=== PATIENT | female | born 1935 | race Caucasian/White ===

== ENCOUNTER 2016-09-04 08:14 | Outpatient (CLI) ==
[2012-12-11 01:52] VITALS: BMI 21.6
[2016-09-04 08:49] LABS: BASOPHILS # (AUTO) 0.1 K/uL (0-0.2); BASOPHILS % (AUTO) 0.9 % (0.0-3.0); EOSINOPHILS # (AUTO) 0.2 K/ul (0.0-0.7); EOSINOPHILS % (AUTO) 2.3 % (0.0-7.0); HEMOGLOBIN 14.1 g/dl (12.0-16.0); IMMATURE GRANULOCYTE % (AUTO) 0.4 % (0.0-5.0); LYMPHOCYTES # (AUTO) 1.7 K/uL (0.60-3.4); LYMPHOCYTES % (AUTO) 24.5 (10.0-50.0); MEAN CORPUSCULAR HEMOGLOBIN 29.1 pg (27.0-31.0); MEAN CORPUSCULAR HGB CONC 32.8 (31.8-35.4); MEAN CORPUSCULAR VOLUME 88.7 fl (81.0-99.0); MONOCYTES # (AUTO) 0.6 K/uL (0.4-2.0); MONOCYTES % (AUTO) 8.9 (0-10); NEUTROPHILS # (AUTO) 4.4 K/ul (2.0-6.9); PLATELET COUNT 192 10^3/uL (140-440); RED BLOOD COUNT 4.85 10^6/ul (4.20-5.40); WHITE BLOOD COUNT 6.95 K/ul (4.6-10.2)
[2016-09-04 08:52] LABS: ADD URINE MICROSCOPIC NO; BILIRUBIN,URINE Negative (NEGATIVE); KETONES,URINE Negative (NEGATIVE); LEUKOCYTE ESTERASE ,URINE Negative (NEGATIVE); NITRITE,URINE Negative (NEGATIVE); PROTEIN,URINE Negative (NEGATIVE); URINE, BLOOD Negative (NEGATIVE)
[2016-09-04 09:11] LABS: ALBUMIN 3.9 g/dL (3.4-5.0); ALBUMIN/GLOBULIN RATIO 1.22; ANION GAP 12.1; BILIRUBIN,TOTAL 0.72 mg/dL (0.00-1.20); BUN/CREATININE RATIO 20.89; CALCIUM 9.5 mg/dL (8.2-10.2); CHOL/HDL RATIO 2.8 (4.5-5.5); CREATININE 0.67 mg/dL (0.60-1.30); POTASSIUM 4.1 mmol/L (3.5-5.10); TOTAL PROTEIN 7.1 g/dL (5.8-8.1)
== END 2016-09-04 08:15 | disposition home or self-care (01) ==
LOC: LAB 08:14
PROVIDERS: ATTEND General Practice
DX: E78.5 Hyperlipidemia, unspecified (principal); I25.10 Atherosclerotic heart disease of native coronary artery without angina pectoris; I83.90 Asymptomatic varicose veins of unspecified lower extremity; R20.0 Anesthesia of skin; R31.29 Other microscopic hematuria; Z79.899 Other long term (current) drug therapy
CPT/HCPCS: 36415; 80053; 80061; 81001; 85025

== ENCOUNTER 2017-06-06 13:22 | Outpatient (CLI) ==
[2012-12-11 01:52] VITALS: BMI 21.6
== END 2017-06-06 13:23 | disposition home or self-care (01) ==
LOC: LAB 13:22
PROVIDERS: ATTEND General Practice
DX: E78.5 Hyperlipidemia, unspecified (principal); Z79.899 Other long term (current) drug therapy
CPT/HCPCS: 36415; 80053; 80061; 81001; 85025

== ENCOUNTER 2017-06-14 08:15 | Outpatient (CLI) ==
[2012-12-11 01:52] VITALS: BMI 21.6
--- NOTE | 2017-06-14 09:11 | CT ---
EXAM: CT chest with contrast HISTORY: Pain in the thoracic spine with shortness of breath COMPARISON: Chest x-ray 12/11/2012 and 08/03/2011 TECHNIQUE: Serial axial images of the chest were obtained after 75 ml of Omnipaque IV contrast was a dministered. These were obtained from the lung apices to the upper abdomen. FINDINGS: The thyroid demonstrates a 0.5 cm low attenuation lesion in the posterior left thyroid l. Visualized vessels demonstrate moderate atherosclerotic disease of the aorta. There is no dissectio n, aneurysm or stenosis. The heart is normal in size without pericardial effusion. There is no medi astinal, hilar or axillary pathologically enlarged lymph nodes. There is no pneumothorax or pleural effusion. There is minimal biapical pleural thickening. There i s mild bibasilar atelectasis. There is a calcified granuloma in the left lower lobe. There is no con solidation, nodule or mass. The airways are patent. There is no abnormal ground-glass or consolidat ion. The osseous structures demonstrate no acute compression fracture with mild degenerative disease. Th e osseous structures are unremarkable. Limited views of the soft tissues in the upper abdomen are un remarkable. There is minimal thickening of the distal esophagus at the GE junction which is decompre ssed. IMPRESSION: 1. No acute cardiopulmonary process with minimal apical pleural thickening which is likely chronic. Minimal bibasilar atelectasis is present. 2. No acute osseous abnormality or compression fracture. 3. Minimal thickening of the distal esophagus at the GE junction may represent artifact due to nondi stension versus mild thickening that may represent an area of inflammation.
== END 2017-06-14 08:16 | disposition home or self-care (01) ==
LOC: RAD 08:15
PROVIDERS: ATTEND General Practice
DX: M54.6 Pain in thoracic spine (principal); R06.02 Shortness of breath

== ENCOUNTER 2017-06-19 08:49 | Outpatient (CLI) | payer OTHER ==
[2012-12-11 01:52] VITALS: BMI 21.6
--- NOTE | 2017-06-19 10:12 | MAMMO ---
EXAM: Bilateral digital screening mammogram (2-D and 3-D) History: Screening Comparison: Bilateral mammogram 10/03/2010 Findings: MLO and CC views of bilateral breasts demonstrate scattered fibroglandular breast parenchy ma. CAD was reviewed by the radiologist. Tomosynthesis was performed. Stable benign bilateral scat tered and vascular calcifications. There are no dominant masses, no suspicious microcalcifications a nd no architectural distortions Impression: Benign stable mammogram. Recommend followup routine screening mammography in 1 year. BIRADS 2
== END 2017-06-19 08:50 | disposition home or self-care (01) ==
LOC: RAD 08:49
PROVIDERS: ATTEND General Practice
DX: Z12.31 Encounter for screening mammogram for malignant neoplasm of breast (principal)
CPT/HCPCS: 77067

== ENCOUNTER 2017-10-11 15:12 | Outpatient (CLI) | payer OTHER ==
[2012-12-11 01:52] VITALS: BMI 21.6
== END 2017-10-11 15:13 | disposition home or self-care (01) ==
LOC: FCC-LAB 15:12
PROVIDERS: ATTEND General Practice
DX: R82.90 Unspecified abnormal findings in urine (principal)
CPT/HCPCS: 81001

== ENCOUNTER 2018-02-13 12:19 | Outpatient (CLI) | payer OTHER ==
[2012-12-11 01:52] VITALS: BMI 21.6
== END 2018-02-13 12:20 | disposition home or self-care (01) ==
LOC: FCC-LAB 12:19
PROVIDERS: ATTEND Family Medicine
DX: R06.09 Other forms of dyspnea (principal)
CPT/HCPCS: 36415; 84443; 85025; 85379

== ENCOUNTER 2018-07-28 08:15 | Outpatient (CLI) | payer OTHER ==
[2012-12-11 01:52] VITALS: BMI 21.6
== END 2018-07-28 08:16 | disposition home or self-care (01) ==
LOC: RHC-LAB 08:15 → FCC-LAB 08:16
PROVIDERS: ATTEND General Practice
DX: E78.5 Hyperlipidemia, unspecified (principal); I25.10 Atherosclerotic heart disease of native coronary artery without angina pectoris; Z79.899 Other long term (current) drug therapy
CPT/HCPCS: 36415; 80053; 80061; 81001; 85025; 87086

== ENCOUNTER 2018-10-29 11:56 | Outpatient (CLI) ==
[2012-12-11 01:52] VITALS: BMI 21.6
== END 2018-10-29 11:57 | disposition home or self-care (01) ==
LOC: RHC-LAB 11:56
PROVIDERS: ATTEND General Practice
DX: N81.4 Uterovaginal prolapse, unspecified (principal); N39.3 Stress incontinence (female) (male)
CPT/HCPCS: 81001; 87086

== ENCOUNTER 2018-11-06 07:55 | Outpatient (CLI) ==
[2012-12-11 01:52] VITALS: BMI 21.6
--- NOTE | 2018-11-06 14:38 | MRI ---
MRI the brain without contrast . HISTORY: Forgetfulness. Dementia. COMPARISON: None PROCEDURE: Multiplanar, multisequence imaging the brain performed without contrast. FINDINGS: The CSF spaces, including the ventricles, sulci and cisterns and surrounding meninges demo nstrate no evidence of abnormal extra-axial fluid collections or hematomas or meningeal based lesions . There are findings compatible with age related involution. The cerebral hemispheres demonstrate no mass or mass effect or acute hemorrhage or infarct. The periventricular and Centrum semiovale whit e matter demonstrate confluent bands of increased T2W / FLAIR signal around the margins of the latera l ventricles with additional scattered patchy and focal white matter lesions distributed within the c entrum. The findings are nonspecific but and an older population often associated with chronic small vessel ischemic disease. The major vascular structures at the level of the [place], inclu ding the internal carotid and basilar arteries and their major branches demonstrate detectable flow v oids and grossly normal anatomy at the present level of resolution. The major posterior fossa struct ures including the cerebellar hemispheres and vermis appear normal for age. The brainstem demonstra jesús patchy regions of increased T2W / FLAIR signal in the mid geovany which may be associated with chron ic small vessel ischemic disease. The petrous pyramids and mastoid air cells appear normal. The s eventh and eighth nerve complexes, IACs and visualized inner ear structures are symmetric and normal in appearance at standard resolution ( no high resolution images are included ).. The cervicomedull alessandro junction and region of the foramen magnum demonstrate no evidence of tonsillar ectopy or Chiari m alformation. The region of the sella turcica and contained pituitary gland demonstrates no intra or supra sellar mass or mass effect. The sella demonstrates a partially empty configuration with a sma ll pituitary. The orbits and orbital contents demonstrate prior cataract surgery. The paranasal sinuses appear normally developed and aerated. Note is made of modest thickening of the calvarium wh ich is a nonspecific finding with multiple possible etiologies. IMPRESSION: 1. The MRI examination demonstrates a normal cerebral and cerebellar anatomy for a patient of this a ge. There is evidence of modest involution. 2. There is no intracerebral mass, mass effect, acute hemorrhage or acute infarct. 3. There is evidence of periventricular and centrum semiovale leukomalacia and of modest findings hooks ggesting chronic small vessel ischemic disease in the geovany. 4. Incidental note is made of prior cataract surgery and a small pituitary gland. 5. Additional findings are listed in the report.
== END 2018-11-06 07:56 | disposition home or self-care (01) ==
LOC: RAD 07:55
PROVIDERS: ATTEND General Practice
DX: R68.89 Other general symptoms and signs (principal); F03.90 Unspecified dementia, unspecified severity, without behavioral disturbance, psychotic disturbance, mood disturbance, and anxiety; N39.3 Stress incontinence (female) (male); I25.10 Atherosclerotic heart disease of native coronary artery without angina pectoris; E78.5 Hyperlipidemia, unspecified; R31.29 Other microscopic hematuria
CPT/HCPCS: 36415; 80053; 82607; 84443; 85025